=== PATIENT | male | born 1995 | race American Indian/Alaskan Native ===

== ENCOUNTER 2017-06-24 10:36 | Emergency (ER) | payer MEDICAID ==
[2017-06-24 10:44] VITALS: TEMP 98.1
--- NOTE | 2017-06-24 10:59 | ED PDOC ---
Arrival/HPI - General Chief Complaint: Psychiatric Evaluation Time Seen by Provider: 06/24/17 10:42 Historian: Patient - History of Present Illness Narrative History of Present Illness (Text): 06/24/17 10:54 A 21 year old male, with no significant past medical history, presents to the emergency department complaining of on and off depression and anxiety. States wanting evaluation of mental health in order to begin taking medication for mental health. Patient reports he has not seen psychiatrist. Patient denies any suicidal/homicidal ideation, visual/auditory hallucinations, or any other complaints. PMD: Dr. Nahomy Rene Past Medical History - Provider Review Nursing Documentation Reviewed: Yes - Cardiac Hx Cardiac Disorders: No - Pulmonary Hx Asthma: Yes - Neurological Hx Neurological Disorder: No - HEENT Hx HEENT Disorder: No - Renal Hx Renal Disorder: No - Endocrine/Metabolic Hx Endocrine Disorders: No - Hematological/Oncological Hx Blood Disorders: No - Integumentary Hx Dermatological Disorder: No - Musculoskeletal/Rheumatological Hx Musculoskeletal Disorders: No - Gastrointestinal Hx Gastrointestinal Disorders: No - Genitourinary/Gynecological Hx Genitourinary Disorders: No - Psychiatric Hx Psychophysiologic Disorder: No Hx Substance Use: No - Surgical History Other/Comment: Genital procedure Family/Social History - Physician Review Nursing Documentation Reviewed: Yes Family/Social History: No Known Family HX Smoking Status: Never Smoked Hx Alcohol Use: No Hx Substance Use: No Allergies/Home Meds Allergies/Adverse Reactions: Allergies No Known Allergies Allergy (Verified 06/24/17 10:44) Home Medications: Home Meds Medication Instructions Recorded Confirmed No Known Home Med 06/24/17 06/24/17 Review of Systems - Physician Review All systems were reviewed & negative as marked: Yes - Review of Systems Constitutional: absent: Fevers Psychiatric: Anxiety, Depression. absent: Suicidal Ideation (and no homicidal ideation), Other (no visual/auditory hallucinations) Physical Exam Vital Signs Temp Pulse Resp BP Pulse Ox 06/24/17 10:40 98.1 F 105 H 18 134/75 99 Temperature: Afebrile Blood Pressure: Normal Pulse: Tachycardic Respiratory Rate: Normal Appearance: Positive for: Well-Appearing, Non-Toxic, Comfortable Pain Distress: None Mental Status: Positive for: Alert and Oriented X 3 - Systems Exam Head: Present: Atraumatic, Normocephalic Pupils: Present: PERRL Extroacular Muscles: Present: EOMI Conjunctiva: Present: Normal Mouth: Present: Moist Mucous Membranes Neck: Present: Normal Range of Motion Respiratory/Chest: Present: Clear to Auscultation, Good Air Exchange. No: Respiratory Distress, Accessory Muscle Use Cardiovascular: Present: Regular Rate and Rhythm, Normal S1, S2. No: Murmurs Abdomen: Present: Normal Bowel Sounds. No: Tenderness, Distention, Peritoneal Signs Back: Present: Normal Inspection Upper Extremity: Present: Normal Inspection. No: Cyanosis, Edema Lower Extremity: Present: Normal Inspection. No: Edema Neurological: Present: GCS=15, CN II-XII Intact, Speech Normal Skin: Present: Warm, Dry, Normal Color. No: Rashes Psychiatric: Present: Alert, Oriented x 3, Normal Insight, Normal Concentration Medical Decision Making ED Course and Treatment: 06/24/17 10:55 Impression: 21 year old male with depression and anxiety. No acute findings on physical examination. Differential Diagnosis included but are not limited to: Feeling Depressed Plan: -- PES / Psych evaluation Progress Notes: 06/24/2017 10:[address] down to evaluate patient. 06/24/17 12:18 PES Mami evaluated the patient with psychiatrist Dr. Consuelo Patel and agreed to Outpatient therapy. He agreed to f/u with the places they are referring him to on their discharge papers. He was advised to return to the ED with any concerns. - Scribe Statement The provider has reviewed the documentation as recorded by the Margie Puga Provider Scribe Attestation: All medical record entries made by the Rodyibgracy were at my direction and personally dictated by me. I have reviewed the chart and agree that the record accurately reflects my personal performance of the history, physical exam, medical decision making, and the department course for this patient. I have also personally directed, reviewed, and agree with the discharge instructions and disposition. Disposition/Present on Arrival - Present on Arrival Any Indicators Present on Arrival: No History of DVT/PE: No History of Uncontrolled Diabetes: No Urinary Catheter: No History of Decub. Ulcer: No History Surgical Site Infection Following: None - Disposition Have Diagnosis and Disposition been Completed?: Yes Diagnosis: Depressed, Anxious mood Disposition: HOME/ ROUTINE Disposition Time: 12:20 Patient Plan: Discharge Patient Problems: Current Active Problems Problem Status Onset Anxious mood Acute Depressed Acute Condition: IMPROVED Discharge Instructions (ExitCare): Depression, Anxiety, Adult (DC) Additional Instructions: Ms Alonso, thank you for letting us take care of you today. Your provider was Dr. Zimmer. You were treated for Feeling Depressed. The emergency medical care you received today was directed at your acute symptoms. If you were prescribed any medication, please fill it and take as directed. It may take several days for your symptoms to resolve. Return to the Emergency Department if your symptoms worsen, do not improve, or if you have any other problems. PLEASE FOLLOW UP WITH THE PSYCH CLINICS REFERRED TO BY PSYCHIATRY. Please contact your doctor or call one of the physicians/clinics you have been referred to that are listed on the Patient Visit Information form that is included in your discharge packet. Bring any paperwork you were given at discharge with you along with any medications you are taking to your follow up visit. Our treatment cannot replace ongoing medical care by a primary care provider (PCP) outside of the emergency department. Thank you for allowing the [facility] team to be part of your care today. If you had an X-Ray or CT scan: A Radiologist will review the ED reading if any change in treatment is needed we will contact you. If you had a blood, urine, or wound culture: It will take several days for the results, if any change in treatment is needed we will contact you. If you had an STI test: It will take 48 hours for the results. Please call after 1 week if you have not heard back. Referrals: Arsenio Gonzalez MD [Primary Care Provider] - Follow up with primary Forms: MJJ Sales (Macedonian), WORK NOTE
[2017-06-24 12:39] VITALS: BP 130/78; PULSE 90; RESP 17; O2SAT 100
== END 2017-06-24 12:20 | disposition home or self-care (01) ==
LOC: ED 10:36
DX: F32.9 Major depressive disorder, single episode, unspecified (principal); F41.9 Anxiety disorder, unspecified